=== PATIENT | female | born 1930 | race Caucasian/White ===

== ENCOUNTER 2017-04-05 08:31 | Outpatient (CLI) | payer MEDICARE, OTHER ==
[2017-04-05 09:11] LABS: Anion Gap 10 mmol/L (10-20); BUN (Urea Nitrogen) 18 mg/dL (9.8-20.1); Calc. Creatinine Clearance 0 mL/min (70-130); Calcium 10.5 mg/dL (7.8-10.44); Carbon Dioxide 31 mmol/L (23-31); Chloride 92 mmol/L (98-107); Estimated GFR-MDRD 75
--- NOTE | 2017-04-05 14:09 | CT ---
CT ABDOMEN AND PELVIS WITH AND WITHOUT IV CONTRAST: Date: 04/05/17 HISTORY: Hydronephrosis, unspecified hydronephrosis type, renal cyst, parapelvic renal cyst. FINDINGS: Correlation is made with bilateral renal ultrasound dated 02/01/17 from [facility]. The lung bases are unremarkable. There is a 1.0 cm calcification in the medial aspect of the right l obe of the liver close to the hilum. No enhancing renal mass is seen. There is a large exophytic cys t arising from the superior pole of the left kidney measuring 8.8 x 7.8 x 6.6 cm. There are parapelv ic cysts on the right. A tiny low density lesion in the inferior pole of the right kidney is likely a tiny cyst. No calculi seen in the kidneys, ureters, or the urinary bladder. No hydroureteronephros is is noted on either side. There is normal contrast excretion by the kidneys into the ureters and t he urinary bladder. The spleen, pancreas, and adrenal glands are unremarkable. No free air, free fluid, or lymphadenopat hy is seen in the abdomen or pelvis. There are vascular calcifications without evidence of aneurysma l dilatation of the abdominal aorta. No calcified gallstones are seen. There are degenerative change s in the spine. There is prominent vascularity in the subcutaneous fat of the lower anterior pelvis/ pubic region. There is sigmoid diverticulosis. The patient is status post hysterectomy and appendect manisha. IMPRESSION: 1. Bilateral renal cysts. No CT evidence of urinary tract calculi/obstruction or solid/enhancing re nal mass. 2. Sigmoid diverticulosis. POS: [facility]
== END 2017-04-05 08:32 | disposition home or self-care (01) ==
LOC: CT 08:31
PROVIDERS: ATTEND Urology
DX: N13.30 Unspecified hydronephrosis (principal); N28.1 Cyst of kidney, acquired; K57.30 Diverticulosis of large intestine without perforation or abscess without bleeding
CPT/HCPCS: 36415; 74178; 80048

== ENCOUNTER 2018-06-28 09:45 | Outpatient (CLI) | payer MEDICARE, OTHER ==
[2018-06-28 10:47] LABS: Anion Gap 14 mmol/L (10-20); BUN (Urea Nitrogen) 14 mg/dL (9.8-20.1); Calc. Creatinine Clearance 0 mL/min (70-130); Carbon Dioxide 27 mmol/L (23-31); Chloride 94 mmol/L (98-107); Estimated GFR-MDRD 67; Glucose 152 mg/dL (83-110); Potassium 4.1 mmol/L (3.5-5.1); Sodium 131 mmol/L (136-145)
--- NOTE | 2018-06-28 11:15 | ULT ---
RENAL ULTRASOUND: HISTORY: Renal cyst. COMPARISON: CT from 04/05/2017. TECHNIQUE: Multiplanar worthy-scale and color Doppler images were obtained in a renal ultrasound. FINDINGS: There is a large cyst in the upper pole of the left kidney, measuring 8.3 cm in greatest dimension. The kidneys are normal in echogenicity without hydronephrosis or calculi and measure 10.8 and 11.6 cm in length on the right and left, respectively. Limited visualization of the urinary bladder is unremarkable. IMPRESSION: Large left renal cyst. POS: [facility]
== END 2018-06-28 09:46 | disposition home or self-care (01) ==
LOC: SCSULT 09:45
PROVIDERS: ATTEND Urology
DX: N28.1 Cyst of kidney, acquired (principal)
CPT/HCPCS: 36415; 76770; 80048